=== PATIENT | female | born 1980 | race Caucasian/White ===

== ENCOUNTER 2019-02-02 02:12 | Emergency (ER) | payer MEDICAID ==
[~2019-02-02] VITALS: Ht 160 cm; Wt 52.3 kg
--- NOTE | 2019-02-02 02:49 | NUR ---
"I AM NOT FEELING WELL. I THINK I GOT SHOT. I PUT THIS TAMPON INSIDE OF ME AND I AM NOT SURE IF SOMEONE PUT SOMETHING IN IT." MONITORS APPLIED, SIDERAILS UP X2, CALL LIGHT WITHIN REACH
[2019-02-02] MEDS ORDERED: CEFTRIAXONE 250 MG ONE (02:55)
[2019-02-02] MEDS ORDERED: AZITHROMYCIN 500 MG TABLET ONE (02:55)
--- NOTE | 2019-02-02 02:59 | NUR ---
PT MEDICATED PER MAR
[2019-02-02] MEDS ORDERED: AZITHROMYCIN 500 MG TABLET PO ONE (03:00)
[2019-02-02] MEDS ORDERED: CEFTRIAXONE 250 MG IM ONE (03:00)
[2019-02-02 03:03] LABS: CLUE CELLS NONE SEEN (NONE SEEN)
[2019-02-02 03:04] LABS: WET PREP WBCS MANY (FEW)
[2019-02-02] MEDS ORDERED: HYDROcodone/APAP 5/325 TABLET ONE (03:30)
[2019-02-02] MEDS ORDERED: HYDROcodone/APAP 5/325 TABLET PO ONE (03:30)
[2019-02-02] MEDS ORDERED: ZIPR20CA2 PO (03:45)
[2019-02-02] MEDS ORDERED: DIAZ2TAB PO (03:45)
[2019-02-02] MEDS ORDERED: PROP10TA16 PO (03:45)
[2019-02-02 03:46] LABS: BASOPHILS % (AUTO) 1 % (0-1); EOSINOPHILS # (AUTO) 0.25 x10^3/uL (0-0.4); EOSINOPHILS % (AUTO) 3 % (1-7); LYMPHOCYTES # (AUTO) 2.98 x10^3/uL (1-3.4); LYMPHOCYTES % (AUTO) 40 % (22-44); MD NO; MEAN CORPUSCULAR HEMOGLOBIN 32.6 pg (27.0-34.8); MEAN CORPUSCULAR HGB CONC 33.2 g/dL (32.4-35.8); MEAN CORPUSCULAR VOLUME 98.1 fL (80-100); MEAN PLATELET VOLUME 8.6 fL (7.4-10.4); MONOCYTES # (AUTO) 0.64 x10^3/uL (0.2-0.8); MONOCYTES % (AUTO) 9 % (2-9); NEUTROPHILS # (AUTO) 3.54 x10^3/uL (1.8-6.8); NEUTROPHILS % (AUTO) 47 % (42-75); PLATELET COUNT 302 x10^3/uL (130-400); RED CELL DISTRIBUTION WIDTH 12.4 % (9.6-15.2)
[2019-02-02 03:52] LABS: ALANINE AMINOTRANSFERASE 20 U/L (12-78); ALBUMIN 3.2 g/dL (3.4-5.0); ANION GAP 7 mmol/L (5-15); CALCIUM 8.6 mg/dL (8.5-10.1); CHLORIDE 108 mmol/L (98-107); CREATININE 0.75 mg/dL (0.55-1.02)
[2019-02-02 03:54] LABS: ALKALINE PHOSPHATASE 89 U/L (45-117); BILIRUBIN,TOTAL 0.1 mg/dL (0.2-1.0); TOTAL PROTEIN 6.1 g/dL (6.4-8.2)
[2019-02-02 04:17] VITALS: BP 98/57
--- NOTE | 2019-02-02 04:18 | NUR ---
PT RESTING CALMLY, DENIES NEEDS, MONITORS IN PLACE, CALL LIGHT WITHIN REACH. AWAITING ULTRASOUND RESULT
== END 2019-02-02 04:41 | disposition home or self-care (01) ==
LOC: ED 02:54
DX: N73.0 Acute parametritis and pelvic cellulitis (principal); R22.1 Localized swelling, mass and lump, neck; F17.200 Nicotine dependence, unspecified, uncomplicated
CPT/HCPCS: 36415; 76830; 80053; 84703; 85025; 87210; 87491; 87591; 87808; 96372; 99284; J0696